=== PATIENT | male | born 2005 | race Caucasian/White ===

== ENCOUNTER 2023-10-21 10:57 | Emergency (ER) | payer OTHER ==
[2023-10-21] MEDS ORDERED: Lidocaine 1% 20 ML MDV INFILT ONE (10:58)
[2023-10-21] MEDS: Bacitracin Oint 1 GM U/D Packet TOP ONE (13:10)
== END 2023-10-21 13:18 | disposition home or self-care (01) ==
LOC: FB.ED 10:57
DX: S61.210A Laceration without foreign body of right index finger without damage to nail, initial encounter (principal); W23.0XXA Caught, crushed, jammed, or pinched between moving objects, initial encounter
CPT/HCPCS: 12001; 99282; 99283